=== PATIENT | female | born 1995 | race Caucasian/White ===

== ENCOUNTER 2019-11-30 11:41 | Emergency (ER) | payer BC, SELFPAY ==
[2019-11-30 11:48] VITALS: BP 125/75; PULSE 71; RESP 18; TEMP 37.3; O2SAT 99
--- NOTE | 2019-11-30 12:05 | ED.SKABFB ---
HPI - Skin/Abscess/Foreign Bdy General Chief complaint: Skin/Abscess/Foreign Body Stated complaint: rash on back/front of torso/arms Time Seen by Provider: 11/30/19 12:00 Source: patient Mode of arrival: ambulatory Limitations: no limitations History of Present Illness HPI narrative: Samantha Giron is a 24 yo female with no PMH with a rash on her front and back torso to pant line that is sporadic and papular. States some lesions are tender, all lesions are pruritic. Started a few days ago Denies being outdoors, change in lotions or soaps, contact with new clothing or other known allergens such as pet hair Related Data Allergies Allergy/AdvReac Type Severity Reaction Status Date / Time No Known Allergies Allergy Verified 11/30/19 11:59 Review of Systems Review of Systems: Narrative: CONSTITUTIONAL: Denies fever, chills, sweats. EYES: Denies visual changes, redness, discharge. ENT: Denies rhinorrhea, congestion, sore throat, otalgia. CARDIOVASCULAR: Denies chest pain, palpitations, edema. RESPIRATORY: Denies dyspnea, wheezing, cough GASTROINTESTINAL: Denies abdominal pain, nausea, vomiting, diarrhea. GENITOURINARY: Denies dysuria, hematuria, abnormal discharge SKIN: Rash on chest and back that stops the pant line that is pruritic and mildly tender NEUROLOGIC: Denies numbness, or focal weakness. PSYCHIATRIC: Denies anxiety or depression. PMFSH Past Medical History Medical History No active medical problems Family History Family History Other Diabetes mellitus Psoriasis Social History Social History Smoking packs per day: 0.5 Smoking cigarettes per day: 10.0 Smoking status: Current every day smoker Alcohol intake: current Comments At time of signature, I agree with nursing past medical, surgical, social and family history. There is no relevant family history pertinent to the presenting complaint. Exam Narrative: Exam Narrative: GENERAL: This is a well-nourished, well-developed patient, in mild distress. HEAD: normocephalic, atraumatic. EYES: Sclera clear/white. Vision is grossly intact. EARS: External ears normal. Hearing grossly intact. NOSE: External nose normal without nasal discharge, nares without redness, no rhinorrhea. THROAT: Mucous membranes moist, NECK: Neck supple, non-tender CARDIOVASCULAR: Regular rate and rhythm without murmurs, gallops, or rubs. RESPIRATORY: Clear to auscultation. Breath sounds equal bilaterally. No wheezes, rales, or rhonchi. GASTROINTESTINAL: Abdomen soft, SKIN: warm, intact red, papular rash that is disffuse chest and back that stops at pant line, none on extremities or face, good texture and turgor. NEURO: awake, alert, and oriented to person, place and time. There were no obvious focal neurologic abnormalities. Steady gait EXTREMITIES: Normal range of motion. BACK: Nontender without deformity Course Course Emergency Course: Started on prednisone Benadryl and Pepcid Discussed awareness of changes in lotions soaps medications that can be irritating to skin Follow-up with PCP Vital Signs Vital signs: Vital Signs Temperature 99.2 F 11/30/19 11:48 Pulse Rate 71 11/30/19 11:48 Respiratory Rate 18 11/30/19 11:48 Blood Pressure 125/75 11/30/19 11:48 Pulse Oximetry 99 11/30/19 11:48 Temperature 99.2 F 11/30/19 11:48 Pulse Rate 71 11/30/19 11:48 Respiratory Rate 18 11/30/19 11:48 Blood Pressure 125/75 11/30/19 11:48 Pulse Oximetry 99 11/30/19 11:48 MDM - Skin/Abscess/Foreign Bdy Differential Diagnosis Differential diagnosis: Likely viral exanthem, urticaria, allergic reaction to drug, insect bites, contact dermatitis and other Discharge Plan Discharge Clinical Impression: Contact dermatitis Qualifiers: Contact dermatitis type: unspecified Contact derm
== END 2019-11-30 12:18 | disposition home or self-care (01) ==
PROVIDERS: Emergency Provider Nurse Practitioner
DX: L25.8 Unspecified contact dermatitis due to other agents (principal); F17.210 Nicotine dependence, cigarettes, uncomplicated
CPT/HCPCS: 99213; G0463

== ENCOUNTER 2019-12-13 17:24 | Emergency (ER) | payer BC, SELFPAY ==
--- NOTE | 2019-12-13 17:33 | ED.GENADULT ---
HPI - General Adult General Chief complaint: Upper Respiratory Infection Stated complaint: sore throat Time Seen by Provider: 12/13/19 18:02 Source: patient Mode of arrival: ambulatory Limitations: no limitations History of Present Illness HPI narrative: 24-year-old female patient presents to the [facility] with complaints of sore throat symptoms that started today. Patient states she has been running fevers as high as 101. Patient denies any runny nose or ear pain. Patient states she did start having a little bit of a cough today but denies shortness of breath or chest pain. Denies any abdominal pain, nausea, vomiting or diarrhea. Patient states she is also needing a return to work note for today. Related Data Allergies Allergy/AdvReac Type Severity Reaction Status Date / Time No Known Allergies Allergy Verified 12/13/19 17:47 Review of Systems Review of Systems: Narrative: CONSTITUTIONAL: Denies fever, chills, or sweats. EYES: Denies visual changes, redness, or discharge. ENT: Denies rhinorrhea, congestion, positive sore throat, denies otalgia. CARDIOVASCULAR: Denies chest pain, palpitations, or edema. RESPIRATORY: Positive cough denies dyspnea. GASTROINTESTINAL: Denies abdominal pain, nausea, vomiting, or diarrhea. GENITOURINARY: Denies dysuria or hematuria. SKIN: Denies rash or itching. MUSCULOSKELETAL: Denies back pain, joint pain, or myalgia. NEUROLOGIC: Denies headache, numbness, or weakness. PSYCHIATRIC: Denies anxiety or depression. PMFSH Past Medical History Medical History No active medical problems Family History Family History Other Diabetes mellitus Psoriasis Social History Social History Smoking packs per day: 0.5 Smoking cigarettes per day: 10.0 Smoking status: Current every day smoker Alcohol intake: current Comments At the time of my signature I agree with nursing past medical history, surgical, social, and family history. There is no relevant family history pertinent to the presenting complaint. Exam Narrative: Exam Narrative: GENERAL: Well-appearing, well-nourished, and in no acute distress. HEAD: Normocephalic, atraumatic. EYES: PERRLA and EOMI. ENT: Nares clear, no rhinorrhea or epistaxis. Mucous membranes moist. Posterior pharynx does have what appears to be a green exudate or ulcer noted to the right tonsil. No erythema to the left tonsil no swelling noted to the tonsils. Bilateral TMs are clear no erythema or foreign bodies to the canal. NECK: Supple. No lymphadenopathy CHEST: Clear to auscultation. No respiratory distress. HEART: Regular rate and rhythm. No murmur heard. Normal peripheral pulses. ABDOMEN: Soft, nontender, nondistended, normal active bowel sounds. EXTREMITIES: Normal range of motion. No edema. SKIN: Warm, dry, no rash. NEURO: No focal deficits. Alert and oriented x3. Course Vital Signs Vital signs: Vital Signs Temperature 37.2 C 12/13/19 17:35 Pulse Rate 106 H 12/13/19 17:35 Respiratory Rate 14 12/13/19 17:35 Blood Pressure 128/70 12/13/19 17:35 Pulse Oximetry 99 12/13/19 17:35 Temperature 37.2 C 12/13/19 17:35 Pulse Rate 106 H 12/13/19 17:35 Respiratory Rate 14 12/13/19 17:35 Blood Pressure 128/70 12/13/19 17:35 Pulse Oximetry 99 12/13/19 17:35 Vital signs reviewed Medical Decision Making Differential Diagnosis Differential Diagnosis: Differential diagnosis: Viral pharyngitis, pharyngitis, group A strep, infectious mononucleosis, gonococcal pharyngitis, exudative pharyngitis, oral candidiasis. Chronic allergies, postnasal drip, GERD, abscess formation, but glottitis, retropharyngeal abscess formation, or airway obstruction. Discussed with patient that her strep and flu are negative today. Discussed with her however I am concerned about this exudat
[2019-12-13 17:35] VITALS: BP 128/70; PULSE 106; RESP 14; TEMP 37.2; O2SAT 99
== END 2019-12-13 18:15 | disposition home or self-care (01) ==
PROVIDERS: Emergency Provider Nurse Practitioner Family
DX: J02.9 Acute pharyngitis, unspecified (principal); Z20.828 Contact with and (suspected) exposure to other viral communicable diseases; F17.210 Nicotine dependence, cigarettes, uncomplicated
CPT/HCPCS: 87081; 87804; 87880; 99213; G0463

== ENCOUNTER 2022-08-17 15:43 | Emergency (ER) | payer OTHER, SELFPAY ==
[2022-08-17 15:48] VITALS: BP 124/74; PULSE 76; RESP 20; TEMP 36.4; O2SAT 100
--- NOTE | 2022-08-17 16:14 | ED.FEMALEGU ---
HPI - Female Genitourinary General Chief complaint: Skin/Abscess/Foreign Body Stated complaint: canker sores mouth/vagina Time Seen by Provider: 08/17/22 16:09 Source: patient and RN notes reviewed Mode of arrival: ambulatory Limitations: no limitations History of Present Illness HPI Narrative: 27-year-old female presents with concern for sores on her mouth and in her genital area. She reports they are painful. She reports she tried DayQuil and NyQuil without relief, proximal mouth rinse without relief. She reports she had similar sores in the back of her throat a few weeks ago that she was prescribed amoxicillin for, reports they did not fully go away with amoxicillin. She denies any history of herpes MD elicited complaint: genital rash Related Data Home Medications Medication Instructions Recorded Confirmed quetiapine 100 mg tablet 100 mg PO DAILY 08/17/22 08/17/22 Allergies Allergy/AdvReac Type Severity Reaction Status Date / Time No Known Allergies Allergy Verified 08/17/22 15:52 Review of Systems Review of Systems: CONSTITUTIONAL: Denies malaise, chills, sweats, or fever. EYES: Denies redness, or discharge. ENT: Denies rhinorrhea, congestion, swollen lips, swollen tongue CARDIOVASCULAR: Denies chest pain, palpitations, or edema. RESPIRATORY: Denies cough or dyspnea. GASTROINTESTINAL: Denies abdominal pain, nausea, vomiting SKIN: Reports painful sores on the corner of her lip and in the back of her mouth, in her genital area MUSCULOSKELETAL: Denies joint pain or myalgia. NEUROLOGIC: Denies headache. All systems reviewed & are unremarkable except as noted in HPI and below PMFSH Past Medical History Medical History (Updated 08/17/22 @ 16:28 by Shira Pat NP) No active medical problems Family History Family History Other Diabetes mellitus Psoriasis Social History Social History Smoking packs per day: 0.5 Smoking cigarettes per day: 10.0 Smoking status: Current every day smoker Alcohol intake: current Comments At time of signature, agree with nursing past medical, surgical, social and family history. There is no relevant family history pertinent to the presenting complaint Exam Narrative: GENERAL: Well-appearing, well-nourished, and in no acute distress. HEAD: Normocephalic, atraumatic. EYES: PERRLA, conjunctivae clear, and EOMI. ENT: Mucous membranes moist. Oropharynx without edema, erythema. Lesion noted to the left posterior oral cavity behind the a teeth NECK: Supple. No lymphadenopathy CHEST: Clear to auscultation. No respiratory distress. HEART: Regular rate and rhythm. SKIN: Warm, dry. Lesion noted at the vaginal opening, 2 vesicles noted to the right corner of the mouth at the lip line NEURO: Alert and oriented x3. PSYCH: Normal mood and affect Course Course Emergency Course: Patient is aware of diagnosis, understands and agrees to treatment plan. Anticipatory guidance given. Patient agrees to follow-up as directed and is aware of reasons to seek care at the emergency department. Portions of this record may have been created with voice recognition software Level of Care: Express Care Visit Vital Signs Vital signs: Vital Signs Temperature 97.6 F 08/17/22 15:48 Pulse Rate 76 08/17/22 15:48 Respiratory Rate 20 08/17/22 15:48 Blood Pressure 124/74 08/17/22 15:48 Pulse Oximetry 100 08/17/22 15:48 Oxygen Delivery Room Air 08/17/22 15:48 Temperature 97.6 F 08/17/22 15:48 Pulse Rate 76 08/17/22 15:48 Respiratory Rate 20 08/17/22 15:48 Blood Pressure 124/74 08/17/22 15:48 Pulse Oximetry 100 08/17/22 15:48 Oxygen Delivery Room Air 08/17/22 15:48 Reviewed. MDM - Female Genitourinary MDM Narrative Medical decision making narrative: Exam findings show no acute concerns or changes; patient is non-toxic a
== END 2022-08-17 16:35 | disposition home or self-care (01) ==
PROVIDERS: Emergency Provider Nurse Practitioner
DX: N89.9 Noninflammatory disorder of vagina, unspecified (principal); K13.70 Unspecified lesions of oral mucosa; F17.210 Nicotine dependence, cigarettes, uncomplicated
CPT/HCPCS: 87255; 99213; G0463